=== PATIENT | female | born 1955 | race Caucasian/White ===

== ENCOUNTER 2017-01-07 13:39 | Emergency (ER) | payer OTHER ==
[2017-01-07 14:03] VITALS: PULSE 0; RESP 16; TEMP 96.8
[2017-01-07] MEDS ORDERED: EPINEPHrine 10 ML SYRINGE (0.1 MG/ML) ONE (14:08)
[2017-01-07] MEDS ORDERED: CALCIUM CHLORIDE 100 MG/ML 10 ML SYRINGE ONE (14:08)
[2017-01-07] MEDS ORDERED: SODIUM BICARB 8.4% 50 ML SYR (1 MEQ/ML) ONE (14:08)
--- NOTE | 2017-01-07 14:15 | XR ---
EXAMINATION TYPE: XR chest 1V portable DATE OF EXAM: 01/07/2017 2:06 PM COMPARISON: 08/29/2013 HISTORY: Cardiac arrest TECHNIQUE: Single frontal view of the chest is obtained. FINDINGS: Endotracheal tube is 4 cm down the right mainstem bronchus into the right lower lobe bronc hus. Heart size is normal. There is no gross heart failure. There is no pleural effusion. There are n o hilar masses. IMPRESSION: No acute lung disease. No heart failure. The endotracheal tube should be pulled back at least 9 cm.
--- NOTE | 2017-01-07 14:40 | ED ---
CPR HPI - General Chief Complaint: Cardiac Arrest/CPR Stated Complaint: cardiac arrest Time Seen by Provider: 01/07/17 14:25 Source: EMS Mode of arrival: EMS Limitations: altered mental status - History of Present Illness Initial Comments: 61 years old female brought in by ambulance with cardiopulmonary arrest she was not breathing on her own EMS trying to intubate her, it did not work. Later once I had a chance to meet her family family had lunch and after lunch she felt little dizzy has been off for her to come to the ER and she said she feels okay then when they were driving towards a home noticed her hands were clammy and she was moving her both arms and was not quite with it. At that point he turned around and called the ambulance and ambulance folks met them skilled nursing and they brought him in here they were driving 6 CPR or they started CPR as soon as they reached here because she has no pulse. On arrival they were bagging her on arrival she had no pulse and there were no respiratory effort Gen. Review of Systems ROS Statement: Those systems with pertinent positive or pertinent negative responses have been documented in the HPI. ROS Other: All systems not noted in ROS Statement are negative. Past Medical History Past Medical History: Unable to Obtain History of Any Multi-Drug Resistant Organisms: Unobtainable Past Surgical History: Unable to Obtain Past Psychological History: Unable to Obtain Smoking Status: Unknown if ever smoked Past Alcohol Use History: Unable to Obtain Past Drug Use History: Unable to Obtain General Exam - General Exam Comments Initial Comments: General: The patient is unresponsive on arrival Skin: Skin is warm and dry and no rashes or lesions are noted. Eye: Pupils are large and nonreactive to light Ears, nose, mouth and throat: There are moist mucous membranes and no oral lesions. Neck: The neck is supple, Cardiovascular: There is no pulse on arrival Respiratory: To auscultation bilateral, no breath sounds, we bagged her then we intubated her him after intubation we noticed bilateral breath sounds Gastrointestinal: Soft, non-distended, non-tender abdomen without masses or organomegaly noted. There is no rebound or guarding present. Bowel sounds are unremarkable. Back: There is no signs of trauma on the back Musculoskeletal: No signs of trauma to upper or lower extremity, seen a interosseous device and proximal tibia Neurological: She is unresponsive on arrival Psychiatric: Responsive on arrival Limitations: altered mental status Course Vital Signs 01/07/17 13:39 Temperature 96.8 F L Pulse Rate 0 L Respiratory 16 Rate O2 Sat by Pulse 98 Oximetry Critical Care Time Total Critical Care Time: 45 Critical Care Time: She came in now with an open holes, according to the ACLS protocol cold with strain for 35 minutes and she was intubated with etomidate tenderness sex with the sex since her teeth was quite clenched in the meantime at the meeting with the family twice once in the middle of the code and now then CK permission to stop the code since she had no pulse for over 35 minutes then her pupils are nonreactive and flexed and she was developing cyanosis in the face and the neck area and the limbs were getting model family agreed to stop the Coumadin she was pronounced did speak with the corner and the family doctor Dr. Tad Matamoros agreed to sign the certificate Disposition Clinical Impression: Cardiopulmonary arrest Disposition: Preliminary Cause of : Cardiopulmonary arrest
== END 2017-01-07 16:00 | disposition expired ==
LOC: EC 13:39
DX: I46.9 Cardiac arrest, cause unspecified (principal); R41.82 Altered mental status, unspecified
CPT/HCPCS: 31500 ×2; 99291 ×2; 71010; J0171